=== PATIENT | female | born 1955 | race Caucasian/White ===

== ENCOUNTER 2020-06-14 16:58 | Emergency (ER) | payer BC, MEDICAID, MEDICARE ==
--- NOTE | 2020-06-14 18:46 | EDM.PDOC ---
ED HPI GENERAL MEDICAL PROBLEM - General Chief Complaint: General Stated Complaint: SICK TO STOMACH/HEADACHE Time Seen by Provider: 06/14/20 18:10 Source of Information: Reports: Patient, Family History Limitations: Reports: No Limitations - History of Present Illness INITIAL COMMENTS - FREE TEXT/NARRATIVE: 64-year-old female developed a sudden headache 2 hours ago after a stressful situation at her sister's house. A pounding right-sided headache with blurred vision. This is unusual for her so she took some ibuprofen and some malgorzata mary grace. Several minutes later she was driving and became very lightheaded, woozy, nauseated and had to last puller. Her was concerned she may be having a stroke so they came in to be checked, she is now feeling much better. She felt like she almost passed out but no asymmetric weakness or neurologic deficits. Her vision is back to normal, headache is almost gone. Onset: Sudden Duration: Hour(s): (About 3 hours ago) Location: Reports: Head (Pounding right-sided headache) Improves with: Reports: Other (Ibuprofen and time seems to have helped) Associated Symptoms: Reports: Weakness, Other (Almost fainted, diaphoretic) Headache Pain Score (Numeric/FACES): 1 - Related Data Allergies Allergy/AdvReac Type Severity Reaction Status Date / Time No Known Allergies Allergy Verified 06/14/20 17:34 Home Meds: Home Meds Oxybutynin Chloride [Oxybutynin Chloride ER] 15 mg PO DAILY 06/14/20 [History] PARoxetine [Paxil] 20 mg PO DAILY 06/14/20 [History] Past Medical History Cardiovascular History: Reports: None Respiratory History: Reports: None Gastrointestinal History: Reports: None Genitourinary History: Reports: Renal Calculus ADMISSIONS DEAN History: Reports: Musculoskeletal History: Reports: None Neurological History: Reports: None Psychiatric History: Reports: Anxiety, Depression Endocrine/Metabolic History: Reports: None Hematologic History: Reports: Anemia Immunologic History: Reports: None Oncologic (Cancer) History: Reports: None Dermatologic History: Reports: None - Infectious Disease History Infectious Disease History: Reports: Chicken Pox, Diphtheria, Measles, Shingles - Past Surgical History HEENT Surgical History: Reports: LASIK, Tonsillectomy GI Surgical History: Reports: None Female Surgical History: Reports: Hysterectomy Musculoskeletal Surgical History: Reports: None Social & Family History - Tobacco Use Tobacco Use Status *Q: Former Tobacco User Used Tobacco, but Quit: Yes Month/Year Tobacco Last Used: 20 years - Caffeine Use Caffeine Use: Reports: Coffee - Recreational Drug Use Recreational Drug Use: Yes Recreational Drug Type: Reports: Marijuana/Hashish Recreational Drug Use Frequency: Socially ED ROS GENERAL - Review of Systems Review Of Systems: See Below Constitutional: Reports: Malaise. Denies: Fever, Chills HEENT: Reports: Vision Change (Blurred vision which improved and is now normal) Respiratory: Denies: Shortness of Breath Cardiovascular: Denies: Chest Pain GI/Abdominal: Reports: Nausea. Denies: Vomiting Neurological: Reports: Headache, Other ([place] like she was going to faint but had no asymmetric deficits) Psychiatric: Reports: Anxiety ED EXAM, GENERAL - Physical Exam Exam: See Below Exam Limited By: No Limitations General Appearance: Alert, No Apparent Distress Eye Exam: Bilateral Eye: Normal Inspection Head: Atraumatic Neck: Supple, Non-Tender Respiratory/Chest: Lungs Clear Cardiovascular: Regular Rate, Rhythm GI/Abdominal: Soft, Non-Tender Neurological: Alert, Oriented, No Motor/Sensory Deficits, Other (Romberg is negative, no pronator drift) Psychiatric: Normal Affect, Normal Mood Course - Vital Signs Last Recorded V/S: Last Vital Signs Temp 98.3 F 06/14/20 17:30 Pulse 59 L 06/14/20 17:30 Resp 20 06/14/20 17:30 BP 139/59 L 06/14/20 17:30 Pulse Ox 100 06/14/20 17:30 - Re-Assessments/Exams Free Text/Narrative Re-Assessment/Exam: 06/14/20 18:[address] was negative. Patient was reassured, will rest tonight and increase activity as tolerated rechecking if worsening. Departure - Departure Time of Disposition: 18:56 Disposition: Home, Self-Care 01 Clinical Impression: Vascular headache, Vasovagal near syncope - Discharge Information Instructions: Near-Syncope, [id number] Referrals: Kelby Moyer MD [Primary Care Provider] - Forms: ED Department Discharge Care Plan Goals: Rest tonight, stay hydrated, and increase diet and activity as tolerated. Another dose of ibuprofen or naproxen may be helpful if headache is returning, and recheck anytime if worsening or concerns especially if neurologic symptoms develop as discussed. Sepsis Event Note (ED) - Evaluation Sepsis Screening Result: No Definite Risk
--- NOTE | 2020-06-14 19:10 | CRLCT ---
INDICATION: sudden onset headache, right side CT HEAD WITHOUT CONTRAST TECHNIQUE: Multiple axial CT images were performed through the head without intravenous contrast administration. COMPARISON: No previous studies are currently available for comparison. FINDINGS: No acute intracranial hemorrhage is identified. No extra-axial collections are evident and there is no mass effect or midline shift. Ventricles are normal in size and configuration. Brain parenchyma appears normal with unremarkable mendoza-white differentiation. Osseous structures are within normal limits and no fractures are seen. Included portions of the paranasal sinuses and mastoid air cells are normally aerated. IMPRESSION: Normal non-contrast head CT. SAM FATIMA MD [facility] Dictated by: Nikoals Fatima MD @ 06/14/2020 19:08:02 (Electronically Signed)
== END 2020-06-14 18:56 | disposition home or self-care (01) ==
LOC: JP.ED 16:58
DX: G44.1 Vascular headache, not elsewhere classified (principal); R55 Syncope and collapse; F41.9 Anxiety disorder, unspecified; F32.9 Major depressive disorder, single episode, unspecified; Z87.891 Personal history of nicotine dependence; Z79.899 Other long term (current) drug therapy
CPT/HCPCS: 70450; 99282; 99285-25